=== PATIENT | male | born 1950 | race Caucasian/White ===

== ENCOUNTER 2021-12-14 19:24 | Inpatient (IN) | payer MEDICARE, OTHER ==
[~2021-12-14] VITALS: Ht 170.2 cm; Wt 125.0 kg
[~2021-12-14 19:24] MED LIST: CYCLOBENZAPRINE10 MG PO
[2021-12-14 20:11] LABS: BASOPHIL 0.2 % (0-2); EOSINOPHIL 0.4 % (0-7); HCT 36.3 % (42.0-52.0); HGB 12.4 g/dl (13.2-18.0); LYMPHOCYTE 3.5 % (15-48); MCH 30.9 pg (25.0-31.0); MCHC 34.2 g/dL (32.0-36.0); MCV 90.5 fL (78.0-100.0); MONOCYTE 6.5 % (0-12); MPV 9.2 fL (6.0-9.5); NEUTROPHIL 89.1 % (41-80); NRBC 0; PLT 188 K/uL (150-400); RBC 4.01 M/uL (4.70-6.00); RDW 12.6 % (11.5-14.0); WBC 13.4 K/uL (4.0-10.5)
[2021-12-14 20:28] LABS: BILIRUBIN - TOTAL 0.4 mg/dL (0.2-1.0); BUN/CREAT RATIO (CALC) 24.1 RATIO; CREATININE 0.54 mg/dL (0.67-1.17); GLOBULIN (CALCULATION) 3.5 g/dL; POTASSIUM 3.1 mmol/L (3.5-5.1); TOTAL PROTEIN 5.5 g/dL (6.4-8.2)
[2021-12-14 20:30] LABS: LACTIC ACID 1.2 mmol/L (0.4-1.9)
[2021-12-14 20:41] LABS: CORONAVIRUS 2019 SARS-COV-2 NEGATIVE (NEGATIVE); INFLUENZA A NAA NEGATIVE (NEGATIVE)
[2021-12-15] MEDS ORDERED: K-TAB ER20 MEQ PO ×2 (02:29→02:30)
[2021-12-15] MEDS ORDERED: BIOTENE237 ML SSP (02:31)
[2021-12-15] MEDS ORDERED: HCTZ12.5 MG PO (02:32)
[2021-12-15] MEDS ORDERED: CHOLECALCIFEROL PO (02:34)
[2021-12-15] MEDS ORDERED: OMEGA 3 1,0001 EACH PO (02:35)
[2021-12-15] MEDS ORDERED: TRELEGY ELLIPT1 EACH PO (02:38)
[2021-12-15] MEDS ORDERED: LASIX40 MG PO (02:39)
[2021-12-15] MEDS ORDERED: OSTEO BI-FLEX PO (02:41)
[2021-12-15] MEDS ORDERED: PROSCAR5 MG PO (02:42)
[2021-12-15] MEDS ORDERED: NICOTINE TD (02:42)
[2021-12-15] MEDS ORDERED: FLOMAX 0.4 MG0.4 MG PO (02:43)
[2021-12-15] MEDS ORDERED: TRAZODONE 100M100 MG PO (02:43)
[2021-12-15] MEDS ORDERED: DICLOFENAC SODI75 MG PO (02:44)
[2021-12-15] MEDS ORDERED: OXY-IR 5MG5 MG PO (02:45)
[2021-12-15] MEDS ORDERED: GABAPENTIN800 MG PO (02:46)
[2021-12-15] MEDS ORDERED: COMBIVENT RESPIMAT PO (02:49)
[2021-12-15] MEDS ORDERED: ALBUTEROL SULFATE PO (02:51)
[2021-12-15 05:42] LABS: BASOPHIL 0.2 % (0-2); EOSINOPHIL 0 % (0-7); HCT 42.2 % (42.0-52.0); HGB 14.3 g/dl (13.2-18.0); LYMPHOCYTE 3.1 % (15-48); MCH 30.7 pg (25.0-31.0); MCHC 33.9 g/dL (32.0-36.0); MCV 90.6 fL (78.0-100.0); MONOCYTE 1.4 % (0-12); MPV 9.2 fL (6.0-9.5); NEUTROPHIL 94.8 % (41-80); NRBC 0; PLT 236 K/uL (150-400); RBC 4.66 M/uL (4.70-6.00); RDW 12.4 % (11.5-14.0); WBC 20.2 K/uL (4.0-10.5)
[2021-12-15 06:24] LABS: BUN/CREAT RATIO (CALC) 23.3 RATIO; CREATININE 0.6 mg/dL (0.67-1.17); POTASSIUM 3.5 mmol/L (3.5-5.1)
--- NOTE | 2021-12-15 09:54 | NUR ---
12/15/21 [facility] will accept patient back per Radha Taylor. A new COVID test will be required after 72 hours of admission.
[2021-12-16 05:54] LABS: BASOPHIL 0.2 % (0-2); EOSINOPHIL 0.3 % (0-7); HCT 33.2 % (42.0-52.0); HGB 11.4 g/dl (13.2-18.0); LYMPHOCYTE 15.2 % (15-48); MCH 31.5 pg (25.0-31.0); MCHC 34.3 g/dL (32.0-36.0); MCV 91.7 fL (78.0-100.0); MPV 9.2 fL (6.0-9.5); NEUTROPHIL 76.5 % (41-80); NRBC 0; PLT 207 K/uL (150-400); RBC 3.62 M/uL (4.70-6.00); RDW 12.6 % (11.5-14.0); WBC 10.5 K/uL (4.0-10.5)
[2021-12-16 06:15] LABS: BUN/CREAT RATIO (CALC) 23.7 RATIO; CREATININE 0.59 mg/dL (0.67-1.17); POTASSIUM 3.6 mmol/L (3.5-5.1)
[2021-12-17 05:42] LABS: BASOPHIL 0.7 % (0-2); EOSINOPHIL 1.3 % (0-7); HCT 35.7 % (42.0-52.0); HGB 11.9 g/dl (13.2-18.0); LYMPHOCYTE 21.8 % (15-48); MCHC 33.3 g/dL (32.0-36.0); MONOCYTE 10.1 % (0-12); MPV 9.1 fL (6.0-9.5); NEUTROPHIL 65.2 % (41-80); NRBC 0; PLT 214 K/uL (150-400); RBC 3.84 M/uL (4.70-6.00); RDW 12.9 % (11.5-14.0)
[2021-12-17 06:06] LABS: BUN/CREAT RATIO (CALC) 17.5 RATIO; CREATININE 0.57 mg/dL (0.67-1.17); POTASSIUM 4.1 mmol/L (3.5-5.1)
[2021-12-18 05:36] LABS: BASOPHIL 0.5 % (0-2); EOSINOPHIL 2.1 % (0-7); HCT 35.9 % (42.0-52.0); LYMPHOCYTE 23.2 % (15-48); MCH 30.8 pg (25.0-31.0); MCHC 33.4 g/dL (32.0-36.0); MCV 92.1 fL (78.0-100.0); MONOCYTE 6.2 % (0-12); MPV 9.3 fL (6.0-9.5); NRBC 0; PLT 238 K/uL (150-400); RDW 12.8 % (11.5-14.0); WBC 9.6 K/uL (4.0-10.5)
[2021-12-18 05:42] LABS: ALBUMIN 1.9 g/dL (3.4-5.0); BILIRUBIN - TOTAL 0.4 mg/dL (0.2-1.0); BUN/CREAT RATIO (CALC) 12.3 RATIO; CREATININE 0.57 mg/dL (0.67-1.17); GLOBULIN (CALCULATION) 3.4 g/dL; POTASSIUM 4.1 mmol/L (3.5-5.1); TOTAL PROTEIN 5.3 g/dL (6.4-8.2)
[2021-12-18] MEDS ORDERED: OXY-IR 5MG5 MG PO (13:35)
[2021-12-18] MEDS ORDERED: OXYCODONE IR 5MG5 MG PO (14:23)
== END 2021-12-18 15:45 | DRG 871 ==
LOC: FER 19:24 → FICU 12-15 00:15 → FTCU 12-16 10:05
PROVIDERS: Internal Medicine; Nurse Practitioner; ADMIT Allergy & Immunology Allergy
PROC: 3E033XZ Introduction of Vasopressor into Peripheral Vein, Percutaneous Approach (ICD-10-PCS; principal; 2021-12-14)
PROC: 3E03329 Introduction of Other Anti-infective into Peripheral Vein, Percutaneous Approach (ICD-10-PCS; 2021-12-14)
DX: A41.9 Sepsis, unspecified organism (principal); R65.21 Severe sepsis with septic shock; J18.9 Pneumonia, unspecified organism; G93.41 Metabolic encephalopathy; J96.91 Respiratory failure, unspecified with hypoxia; J44.0 Chronic obstructive pulmonary disease with (acute) lower respiratory infection; Z20.822 Contact with and (suspected) exposure to COVID-19; Z66 Do not resuscitate; G47.33 Obstructive sleep apnea (adult) (pediatric); F32.A Depression, unspecified; F17.200 Nicotine dependence, unspecified, uncomplicated; Y95 Nosocomial condition; Z79.899 Other long term (current) drug therapy; Z98.890 Other specified postprocedural states
CPT/HCPCS: 36415; 36600; 70450; 71045; 71046; 71250; 80048; 80053; 80202; 82140; 82803; 83605; 83880; 84145; 84484; 85025; 87040; 87070; 87205; 93005; 94010; 94640; 94667; 94668; 94762; 96365; 96367; 96375; 97110; 97162; 97166; 97530-GP; 97535; J1100; J1650; J2543; J3370; J7030; J7040; J7050; J7120; U0002

== ENCOUNTER 2021-12-26 14:53 | Inpatient (IN) | payer MEDICARE, OTHER ==
[~2021-12-26] VITALS: Ht 170.2 cm; Wt 80.3 kg
[~2021-12-26 14:53] MED LIST changes: +ALBUTEROL SULFATE PO; +BIOTENE237 ML SSP; +CHOLECALCIFEROL PO; +COMBIVENT RESPIMAT PO; +DICLOFENAC SODI75 MG PO; +FLOMAX 0.4 MG0.4 MG PO; +GABAPENTIN800 MG PO; +HCTZ12.5 MG PO; +K-TAB ER20 MEQ PO; +LASIX40 MG PO; +NICOTINE TD; +OMEGA 3 1,0001 EACH PO; +OSTEO BI-FLEX PO; +OXY-IR 5MG5 MG PO; +OXYCODONE IR 5MG5 MG PO; +PROSCAR5 MG PO; +TRAZODONE 100M100 MG PO; +TRELEGY ELLIPT1 EACH PO
[2021-12-26 15:43] LABS: BASOPHIL 1.1 % (0-2); HCT 37.9 % (42.0-52.0); HGB 12.4 g/dl (13.2-18.0); LYMPHOCYTE 16.4 % (15-48); MCH 30.5 pg (25.0-31.0); MCHC 32.7 g/dL (32.0-36.0); MCV 93.1 fL (78.0-100.0); MONOCYTE 6.7 % (0-12); MPV 9.5 fL (6.0-9.5); NEUTROPHIL 73.5 % (41-80); NRBC 0; PLT 269 K/uL (150-400); RBC 4.07 M/uL (4.70-6.00); RDW 12.6 % (11.5-14.0)
[2021-12-26 15:49] LABS: INR 1.01 (0.9-1.2); PROTHROMBIN TIME 12.7 SECONDS (11.8-13.4); PTT 38.8 SECONDS (24.4-34.7)
[2021-12-26 16:00] LABS: LACTIC ACID 1.1 mmol/L (0.4-1.9)
[2021-12-26 16:14] LABS: ALBUMIN 2.4 g/dL (3.4-5.0); BILIRUBIN - TOTAL 0.3 mg/dL (0.2-1.0); BUN/CREAT RATIO (CALC) 24.7 RATIO; C-REACTIVE PROTEIN 1.7 mg/dL (<=0.90); CREATININE 0.93 mg/dL (0.67-1.17); GLOBULIN (CALCULATION) 3.5 g/dL; MAGNESIUM 1.9 mg/dL (1.8-2.4); POTASSIUM 3.9 mmol/L (3.5-5.1); TOTAL PROTEIN 5.9 g/dL (6.4-8.2)
[2021-12-26 16:21] LABS: CORONAVIRUS 2019 SARS-COV-2 NEGATIVE (NEGATIVE); INFLUENZA A NAA NEGATIVE (NEGATIVE)
[2021-12-26 16:48] LABS: BILIRUBIN NEGATIVE (NEGATIVE); BLOOD NEGATIVE Ery/uL (NEGATIVE); CLARITY CLEAR (CLEAR); COLOR YELLOW (YELLOW); GLUCOSE (U) NORMAL (NORMAL); LEUKOCYTES NEGATIVE Leu/uL (NEGATIVE); NITRITE NEGATIVE (NEGATIVE); PROTEIN NEGATIVE (NEGATIVE); SPECIFIC GRAVITY 1.015 (1.001-1.030); UROBILINOGEN 0.2 mg/dL (0.2-1.0)
[2021-12-27 06:17] LABS: BASOPHIL 1.2 % (0-2); EOSINOPHIL 3.5 % (0-7); HCT 35.2 % (42.0-52.0); HGB 11.5 g/dl (13.2-18.0); LYMPHOCYTE 10.1 % (15-48); MCH 30.9 pg (25.0-31.0); MCHC 32.7 g/dL (32.0-36.0); MCV 94.6 fL (78.0-100.0); MPV 9.4 fL (6.0-9.5); NEUTROPHIL 75.7 % (41-80); NRBC 0; PLT 222 K/uL (150-400); RBC 3.72 M/uL (4.70-6.00); RDW 12.8 % (11.5-14.0); WBC 6.5 K/uL (4.0-10.5)
[2021-12-27 06:38] LABS: ALBUMIN 2.2 g/dL (3.4-5.0); BILIRUBIN - TOTAL 0.5 mg/dL (0.2-1.0); BUN/CREAT RATIO (CALC) 22.6 RATIO; CREATININE 0.84 mg/dL (0.67-1.17); GLOBULIN (CALCULATION) 3.5 g/dL; POTASSIUM 4.2 mmol/L (3.5-5.1); TOTAL PROTEIN 5.7 g/dL (6.4-8.2)
[2021-12-27] MEDS ORDERED: MULTI-VITAMIN1 EACH PO (15:47)
--- NOTE | 2021-12-27 16:03 | NUR ---
12/27/21 Mr. Candelario was admitted from [facility]. They will accept him back per Radha Taylor. No pre-auth is required. A new COVID test is required if admitted greater than 72 hours.
[2021-12-29] MEDS ORDERED: LEVAQUIN750 MG PO (17:16)
[2021-12-29] MEDS ORDERED: MUCINEX 600MG600 MG PO (17:16)
[2021-12-29] MEDS ORDERED: VITAMIN D325 MC1 PO (17:16)
[2021-12-29] MEDS ORDERED: PREDNISONE 10MG10 MG PO (17:16)
[2021-12-29] MEDS ORDERED: DUONEB 2.5-0.5M1 AMP NEB ×2 (17:16)
[2021-12-29] MEDS ORDERED: ZYVOX600 MG PO (17:16)
[2021-12-29] MEDS ORDERED: CEFEPIME HCL2 GM IV (17:16)
[2021-12-29] MEDS ORDERED: MIRALAX17 GM PO (17:41)
[2021-12-29] MEDS ORDERED: OXY-IR 5MG5 MG PO (17:50)
--- NOTE | 2021-12-30 09:13 | NUR ---
PATIENT DISCHARGED BEFORE WOUND CARE COULD SEE.
== END 2021-12-29 19:30 | DRG 193 ==
LOC: FER 14:53 → FTCU 17:41
PROVIDERS: Emergency Medicine; Nurse Practitioner; ADMIT Internal Medicine
DX: J18.9 Pneumonia, unspecified organism (principal); J96.21 Acute and chronic respiratory failure with hypoxia; E43 Unspecified severe protein-calorie malnutrition; J44.1 Chronic obstructive pulmonary disease with (acute) exacerbation; J44.0 Chronic obstructive pulmonary disease with (acute) lower respiratory infection; I50.32 Chronic diastolic (congestive) heart failure; L89.152 Pressure ulcer of sacral region, stage 2; Z20.822 Contact with and (suspected) exposure to COVID-19; I11.0 Hypertensive heart disease with heart failure; I89.0 Lymphedema, not elsewhere classified; N40.0 Benign prostatic hyperplasia without lower urinary tract symptoms; M48.00 Spinal stenosis, site unspecified; M54.10 Radiculopathy, site unspecified; R54 Age-related physical debility; G47.33 Obstructive sleep apnea (adult) (pediatric); F32.A Depression, unspecified; Z68.27 Body mass index [BMI] 27.0-27.9, adult; Z87.891 Personal history of nicotine dependence; Z79.899 Other long term (current) drug therapy
CPT/HCPCS: 36415; 71250; 80053; 81003; 83605; 83735; 83880; 84145; 84484; 85025; 85610; 85730; 86140; 87040; 87070; 87077; 87088; 87186; 87205; 94640; 94667; 94668; 94760; 94762; 97162; 97166; 97530-GP; 97535; J0692; J1642; J1650; J1956; J2543; J3370; J7030; J7050; J7512; U0002

== ENCOUNTER 2022-01-12 09:56 | Emergency (ER) | payer MEDICARE, OTHER ==
[~2022-01-12 09:56] MED LIST changes: +CEFEPIME HCL2 GM IV; +DUONEB 2.5-0.5M1 AMP NEB; +LEVAQUIN750 MG PO; +MIRALAX17 GM PO; +MUCINEX 600MG600 MG PO; +MULTI-VITAMIN1 EACH PO; +PREDNISONE 10MG10 MG PO; +VITAMIN D325 MC1 PO; +ZYVOX600 MG PO
[2022-01-12 10:45] LABS: BASOPHIL 0.4 % (0-2); EOSINOPHIL 5.1 % (0-7); HGB 11.9 g/dl (13.2-18.0); LYMPHOCYTE 22.4 % (15-48); MCH 30.4 pg (25.0-31.0); MCHC 32.2 g/dL (32.0-36.0); MCV 94.4 fL (78.0-100.0); MPV 9.8 fL (6.0-9.5); NEUTROPHIL 63.5 % (41-80); NRBC 0; PLT 181 K/uL (150-400); RBC 3.92 M/uL (4.70-6.00); RDW 13.3 % (11.5-14.0); WBC 9.3 K/uL (4.0-10.5)
[2022-01-12 10:48] LABS: INR 0.99 (0.9-1.2); PROTHROMBIN TIME 12.5 SECONDS (11.8-13.4); PTT 32.2 SECONDS (24.4-34.7)
[2022-01-12 10:56] LABS: ALBUMIN 2.9 g/dL (3.4-5.0); BILIRUBIN - TOTAL 0.4 mg/dL (0.2-1.0); BUN/CREAT RATIO (CALC) 33.6 RATIO; CREATININE 1.16 mg/dL (0.67-1.17); GLOBULIN (CALCULATION) 3.6 g/dL; POTASSIUM 4.8 mmol/L (3.5-5.1); TOTAL PROTEIN 6.5 g/dL (6.4-8.2)
[2022-01-12 11:00] LABS: LACTIC ACID 1.1 mmol/L (0.4-1.9)
[2022-01-12 11:40] LABS: CORONAVIRUS 2019 SARS-COV-2 NEGATIVE (NEGATIVE); INFLUENZA A NAA NEGATIVE (NEGATIVE)
== END 2022-01-12 19:25 | disposition other institution (70) ==
LOC: FER 09:56
PROVIDERS: Emergency Medicine
DX: J44.0 Chronic obstructive pulmonary disease with (acute) lower respiratory infection (principal); J15.1 Pneumonia due to Pseudomonas; I11.0 Hypertensive heart disease with heart failure; I50.30 Unspecified diastolic (congestive) heart failure; Z16.24 Resistance to multiple antibiotics; Z91.09 Other allergy status, other than to drugs and biological substances; Z20.822 Contact with and (suspected) exposure to COVID-19
CPT/HCPCS: 36415; 36600; 71045; 71250; 80053; 82803; 83605; 83880; 84145; 84484; 85025; 85610; 85730; 87040; 87070; 87205; 93005; 94010; 94640; 94664; J7040; U0002

== ENCOUNTER 2022-04-12 08:56 | Day surgery (SDCO) | payer MEDICARE, OTHER ==
[~2022-04-12] VITALS: Ht 170.2 cm; Wt 83.5 kg
[2022-04-12 10:35] LABS: BASOPHIL 0.3 % (0-2); EOSINOPHIL 0.6 % (0-7); HCT 39.7 % (42.0-52.0); HGB 12.6 g/dl (13.2-18.0); LYMPHOCYTE 3.2 % (15-48); MCHC 31.7 g/dL (32.0-36.0); MCV 91.5 fL (78.0-100.0); MONOCYTE 3.8 % (0-12); MPV 9.6 fL (6.0-9.5); NRBC 0; PLT 223 K/uL (150-400); RBC 4.34 M/uL (4.70-6.00); RDW 12.5 % (11.5-14.0); WBC 17.7 K/uL (4.0-10.5)
[2022-04-12 10:36] LABS: NEUTROPHIL 90.5 % (41-80)
[2022-04-12 10:39] LABS: CORONAVIRUS 2019 SARS-COV-2 NEGATIVE (NEGATIVE); INFLUENZA A NAA NEGATIVE (NEGATIVE)
[2022-04-12 11:01] LABS: LACTIC ACID 1.1 mmol/L (0.4-1.9)
[2022-04-12 11:13] LABS: IRON % SATURATION 6.9 %SAT (20-50)
[2022-04-12 11:50] LABS: ALKALINE PHOSHATASE 62 U/L (46-116); ALT 17 U/L (16-63); AST 14 U/L (15-37); BILIRUBIN - TOTAL 0.4 mg/dL (0.2-1.0); BUN 21 mg/dL (7-18); BUN/CREAT RATIO (CALC) 25.6 RATIO; CHLORIDE 102 mmol/L (98-107); CO2 (BICARBONATE) 30 mmol/L (21-32); CREATININE 0.82 mg/dL (0.67-1.17); FT4 (FREE T4) < 0.20 ng/dL (0.76-1.46); GLUCOSE 91 mg/dL (74-106); POTASSIUM 3.9 mmol/L (3.5-5.1); TOTAL PROTEIN 6.6 g/dL (6.4-8.2)
[2022-04-12 12:06] LABS: GLOBULIN (CALCULATION) 3.6 g/dL
[2022-04-12 13:31] LABS: INR 1.07 (0.9-1.2); PROTHROMBIN TIME 13.3 SECONDS (11.8-13.4)
[2022-04-12 13:32] LABS: PTT 37.7 SECONDS (24.4-34.7)
[2022-04-12 14:31] LABS: BILIRUBIN NEGATIVE (NEGATIVE); BLOOD NEGATIVE Ery/uL (NEGATIVE); CLARITY CLEAR (CLEAR); COLOR YELLOW (YELLOW); GLUCOSE (U) NORMAL (NORMAL); LEUKOCYTES NEGATIVE Leu/uL (NEGATIVE); NITRITE NEGATIVE (NEGATIVE); PROTEIN NEGATIVE (NEGATIVE); UROBILINOGEN 0.2 mg/dL (0.2-1.0); pH 7.5 (5.0-9.0)
[2022-04-12] MEDS ORDERED: BUMEX1 MG PO (16:52)
[2022-04-12] MEDS ORDERED: POTASSIUM CHLO10 MEQ PO (16:53)
[2022-04-13 05:59] LABS: HCT 35.4 % (42.0-52.0); HGB 11.4 g/dl (13.2-18.0); MCH 29.6 pg (25.0-31.0); MCHC 32.2 g/dL (32.0-36.0); MCV 91.9 fL (78.0-100.0); MPV 9.8 fL (6.0-9.5); RBC 3.85 M/uL (4.70-6.00); RDW 12.5 % (11.5-14.0); WBC 12.2 K/uL (4.0-10.5)
[2022-04-13 06:31] LABS: BUN/CREAT RATIO (CALC) 32.8 RATIO; CREATININE 0.64 mg/dL (0.67-1.17); POTASSIUM 3.9 mmol/L (3.5-5.1)
[2022-04-13] MEDS ORDERED: AUGMENTIN 500-1 EACH PO (10:49)
[2022-04-13] MEDS ORDERED: PREDNISONE 20MG20 MG PO (10:49)
== END 2022-04-13 12:45 | disposition home health service (06) ==
LOC: FER 08:56 → FTCU 13:13
PROVIDERS: Emergency Medicine; ADMIT Family Medicine
DX: J96.21 Acute and chronic respiratory failure with hypoxia (principal); J18.9 Pneumonia, unspecified organism; J44.1 Chronic obstructive pulmonary disease with (acute) exacerbation; G93.41 Metabolic encephalopathy; D50.9 Iron deficiency anemia, unspecified; I11.0 Hypertensive heart disease with heart failure; I50.9 Heart failure, unspecified; G47.33 Obstructive sleep apnea (adult) (pediatric); N40.0 Benign prostatic hyperplasia without lower urinary tract symptoms; E78.5 Hyperlipidemia, unspecified; M19.90 Unspecified osteoarthritis, unspecified site; M1A.9XX0 Chronic gout, unspecified, without tophus (tophi); M54.16 Radiculopathy, lumbar region; Z87.891 Personal history of nicotine dependence; Z79.899 Other long term (current) drug therapy; Z91.048 Other nonmedicinal substance allergy status; Z20.822 Contact with and (suspected) exposure to COVID-19
CPT/HCPCS: 36415; 36600; 71250; 80048; 80053; 81003; 82728; 82803; 83540; 83550; 83605; 83735; 83880; 84145; 84439; 84443; 84484; 85025; 85610; 85730; 86140; 87040; 87070; 87205; 93005; 94010; 94640; 94760; 94762; G0378; J0696; J2543; J7050; J7512; U0002